=== PATIENT | female | born 1980 | race Caucasian/White ===

== ENCOUNTER → 2016-11-08 | Outpatient (CLI) | payer OTHER ==
--- NOTE | 2016-11-08 16:55 | DI ---
BILATERAL SPHENOPALATINE GANGLION BLOCK, 11/08/2016 3:11 PM : Clinical History: Migraine headaches. Previous Procedure: None at this facility. A "time out" session was performed to verify the patient's name and date of prior to initiatin g this procedure. The patient was informed of benefits and risks, to include but not be limited to: a llergies to the local nasal mucosal anesthetic (Cetacaine [place]), and lidocaine. An informed, signed consent was then obtained from the patient. After adequate topical anesthesia was obtained bilaterally, the SPG catheter was sequentially introdu ross on the left then the right nostril. Approximately 2.5 mL of 2% lidocaine was injected for each si de. Skin temperature changes, tearing, and injection of the sclerae were noted bilaterally with immed iate relief of the patient's nausea. At the completion of the procedure, the patient was allowed to s it up and that she indicated that her headache was no longer present.. No complications were encounte red, and the patient was discharged from the Radiology Department in stable condition. Reading: Successful and uncomplicated bilateral SPG blocks with immediate nausea and headache relief.
== END ==
LOC: RAD 14:59
PROVIDERS: ATTEND Specialist
DX: G43.809 Other migraine, not intractable, without status migrainosus (principal)
CPT/HCPCS: 64505